=== PATIENT | male | born 1935 | race African-American/Black ===

== ENCOUNTER 2020-09-01 16:02 | Emergency (ER) | payer MEDICARE ==
[~2020-09-01] VITALS: Ht 182.9 cm; Wt 102.1 kg
[2020-09-01 16:02] VITALS: BP_SYST 126
--- NOTE | 2020-09-01 16:02 | NUR ---
Patient triaged and placed in waiting room. VSS and patient appears in no acute distress at this time. Accompanied by SON, awaiting available bed, and MD notified of need for MSE.
--- NOTE | 2020-09-01 16:29 | NUR ---
DR DIAZ IN TRIAGE ROOM EXAMINING PATIENT.
--- NOTE | 2020-09-01 16:30 | NUR ---
PATIENT REPORTS SLIP AND FELL AT HOME ON TILE HITTING LEFT OCCIPTAL SCALP WITH HEMATOMA AND 2 CM LACERATION. BLEEEDING CONTROLLED. DENIES ANY LOC, NAUSEA, VOMITTING, OR CHANGE IN VISION. PATIENT IS AOX4 COMPLAINING OF SLIGHT HEADACHE. 12/26. ACCOMPANIED BY SON. NO OTHER COMPLAINTS/INJURIES PER PATIENT OR NOTED. WILL CONTINUE TO MONITOR.
--- NOTE | 2020-09-01 16:38 | NUR ---
Patient to [facility] for evaluation. Side rails up. Report given to JALEN MARTINEZ
[2020-09-01] MEDS ORDERED: MORPHINE 4 MG/ML INJ. SYRINGE IM ONE (17:15)
[2020-09-01] MEDS ORDERED: MORPHINE 4 MG/ML INJ. SYRINGE ONE (17:23)
--- NOTE | 2020-09-01 17:29 | NUR ---
Patient moved to bed 4.
--- NOTE | 2020-09-01 17:32 | NUR ---
Pt A&OX4, respirations even and unlabored, pt refusing to lay down or get an IV, pt states we can not force them to get anything.
--- NOTE | 2020-09-01 17:56 | NUR ---
Patient does not wish to proceed with medical care recommended by DR DIAZ. Patient given information related to possible complications, up to and including , which could occur as a result of leaving hospital at this time. Patient verbalizes understanding of risks involved leaving against medical advice. Patient has signed AMA form.
[2020-09-01 17:57] VITALS: BP_SYST 126
== END 2020-09-01 17:57 | disposition left against medical advice (07) ==
LOC: SED 16:02
DX: S06.5X0A Traumatic subdural hemorrhage without loss of consciousness, initial encounter (principal); I10 Essential (primary) hypertension; E78.5 Hyperlipidemia, unspecified; Z85.46 Personal history of malignant neoplasm of prostate; Z86.2 Personal history of diseases of the blood and blood-forming organs and certain disorders involving the immune mechanism; W01.0XXA Fall on same level from slipping, tripping and stumbling without subsequent striking against object, initial encounter; Y93.89 Activity, other specified; Y92.89 Other specified places as the place of occurrence of the external cause; Y99.8 Other external cause status
CPT/HCPCS: 70450; 76376; 96372; 99284; J2270